=== PATIENT | male | born 1935 | race Caucasian/White ===

== ENCOUNTER 2020-10-15 19:11 | Emergency (ER) | payer MEDICARE ==
[~2020-10-15] VITALS: Ht 182.9 cm; Wt 88.5 kg
--- NOTE | ~2020-10-15 | EMS ---
[facility] [address] [place] [address] EMS Patient Care Report Name: NAYE BABCOCK Room #: DEP VENUS Mathis#: [id number] Admission: 10/15/20 Attend Phys: Discharge: 10/15/20 Date of : 37 Report #: [id number] THIS REPORT FOR: //name// Report Transmitted: 10/15/2020 20:08 EMS Care Summary [facility]-ACT Incident [id number] @ 10/15/2020 18:41 Incident Location [address] [place] [address] Patient SARAH A SADIQ Male, 85 Years 1935 Patient Address [address] [place] [address]. [place] [address] Patient History Hypothyroidism, Patient Allergies No known allergies, Patient Medications Aspirin, Levothyroxine, Chief Complaint Right ankle pain Disposition Transported No Lights/[place] Dispatch Reason Falls Transported To [facility] Narrative At 18:41, [id number] was dispatched by 911 to the [facility] at [address] [place] [address] for a C2 fall. [facility] was also dispatched. PT was an 85 yr male who was shopping at the grocery store when he slipped on grease that was spilled on the floor. PT stated he did not hit his head or lose [address] [address] EMS Patient Care Report Name: NAYE BABCOCK Room #: DEP ER Delfina#: [id number] Admission: 10/15/20 Attend Phys: Discharge: 10/15/20 Date of : 37 Report #: [id number] consciousness. PT stated that the only pain was his right ankle. PMS distal to the injury in tact. PT denied nausea, difficulty breathing, or any other pain. Ankle was splinted , with an ice pack placed. PT stated that the pain was reduced to a 1/10. VS as listed Radio report to [place]. Transfer of care to ED room 2. Initial Vitals @19:07P: 67,R: 16,BP: 193/103,GCS: 15,SpO2: 98,Revised Trauma: 12, @19:02P: 64,R: 16,BP: 195/77,Pain: 1/10,GCS: 15,SpO2: 99,Revised Trauma: 12, @18:49P: 73,R: 16,BP: 198/98,Pain: 4/10,GCS: 15,Temp: 96.5F,SpO2: 99,Revised Trauma: 12, Assessments @18:48MENTAL:Person Oriented,Time Oriented,Place Oriented,Event Oriented,SKIN:HEENT:Eyes: Left Pupil: 4-mm,Eyes: Right Pupil: 4-mm,Head/Face: No Abnormalities,Neck/Airway: No Abnormalities,LUNG SOUNDS:General: No Abnormalities,ABDOMEN:General: No Abnormalities,PELVIS//GI:No Abnormalities,EXTREMITIES:Right Leg: ANTIONETTE,Right Leg: ABDULLAHI,Left Arm: No Abnormalities,Right Arm: No Abnormalities,Left Leg: No Abnormalities,PULSE:NEURO:No Abnormalities, Impression Injury of Ankle Procedures @18:48ALS AssessmentResponse: UnchangedSucceeded@18:54Splint Fx/Disloc.Response: ImprovedSucceeded Timeline 18:40,Call Received 18:40,Psap Call 18:41,Dispatched 18:42,En Route 18:46,On Scene 18:47,At Patient 18:48,ALS Assessment,Response: UnchangedSucceeded, 18:49,BP: 198/98 M,PULSE: 73,RR: 16 R,SPO2: 99 Ox,ETCO2: ,BG: ,PAIN: 4,GCS: 15, 18:54,Splint Fx/Disloc.,Response: ImprovedSucceeded, 18:58,Depart Scene 19:02,BP: 195/77 M,PULSE: 64,RR: 16 R,SPO2: 99 Ox,ETCO2: ,BG: ,PAIN: 1,GCS: 15, 19:07,BP: 193/103 M,PULSE: 67,RR: 16 R,SPO2: 98 Ox,ETCO2: ,BG: ,PAIN: ,GCS: 15, 19:08,At Destination 19:29,Call Closed Disclaimer [facility] [address] [place] [address] EMS Patient Care Report Name: NAYE BABCOCK Room #: DEP VENUS Mathis#: [id number] Admission: 10/15/20 Attend Phys: Discharge: 10/15/20 Date of : 37 Report #: [id number] v1.1 Copyright 2020 [employer] This EMS Care Summary contains data elements from the applicable legal record (which may be displayed differently). It is designed to provide pertinent information for the following purposes: continuity of care, clinical quality, and state data reporting. The complete legal record is available to ED staff and administrators of the receiving hospital in [employer]'s Patient Tracker. All data is provided "as is."
[~2020-10-15 19:11] MED LIST: KEFLEX500 MG PO; LEVOTHROID125 MCG; VICODIN 5-5001 EACH PO
[2020-10-15] MEDS ORDERED: CHILDREN'S ASPI81 M1 PO (19:24)
[2020-10-15 20:39] VITALS: BP 188/90
== END 2020-10-15 20:39 | disposition home or self-care (01) ==
LOC: ER 19:11
DX: S93.491A Sprain of other ligament of right ankle, initial encounter (principal); E03.9 Hypothyroidism, unspecified; Z91.041 Radiographic dye allergy status; Z79.82 Long term (current) use of aspirin; Z96.643 Presence of artificial hip joint, bilateral; Z87.442 Personal history of urinary calculi; W01.0XXA Fall on same level from slipping, tripping and stumbling without subsequent striking against object, initial encounter; Y93.01 Activity, walking, marching and hiking; Y92.89 Other specified places as the place of occurrence of the external cause; Y99.9 Unspecified external cause status